=== PATIENT | male | born 2000 | race Caucasian/White ===

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

== ENCOUNTER 2023-03-11 01:34 | Emergency (ER) | payer MEDICAID, SELFPAY ==
[2023-03-11 01:36] VITALS: BP 138/92; PULSE 107; RESP 28; TEMP 36.4; O2SAT 100; BMI 15.7
--- NOTE | 2023-03-11 01:46 | EKG12_ITS ---
Test Reason : DYSRHYTHMIA Blood Pressure : / mmHG Vent. Rate : 099 BPM Atrial Rate : 099 BPM P-R Int : 110 ms QRS Dur : 094 ms QT Int : 352 ms P-R-T Axes : 065 091 050 degrees QTc Int : 451 ms Sinus rhythm with short MA Possible Left atrial enlargement Rightward axis ST elevation, consider early repolarization, pericarditis, or injury Abnormal ECG Confirmed by KIMBERLYN HERNANDEZ MD ([id number]), editor managing director SUSI RIVERS ([id number]) on 03/11/2023 1:56:17 PM Referred By: RON Confirmed By:KIMBERLYN HERNANDEZ MD
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
[2023-03-11] MEDS: Ondansetron 4 MG/2 ML Vial IV (02:08)
[2023-03-11] MEDS: Ketorolac 30 MG/ML Syringe IV (02:08)
[2023-03-11] MEDS: 0.9% Normal Saline (1000mL) 1,000 ML 1000 ML IV ×2 (02:08→02:53)
[2023-03-11 02:11] LABS: Absolute Neutrophil Count 14.4 X10^3/uL (2.0-7.7); Basophil% 0.6 % (0-1); Eosinophil# 0.04 X10^3/uL; Eosinophils% 0.2 % (0-5); Hemoglobin 16.3 g/dL (13.0-16.5); Lymphocyte % 3.7 % (19-41); Mean Corp Hgb Conc 33.3 g/dL (32-36); Mean Corpuscular Hgb 31.3 pg (27.0-32.0); Mean Platelet Vol. 10.2 fl (6.2-12.0); Monocyte# 0.84 X10^3/uL; Monocyte% 5.2 % (0-10); NRBC Flagged by Analyzer 0 % (0-5); Neutrophil # 14.39 X10^3/uL (2.7-7.7); POSITIVE DIFFERENTIAL YES; Platelet Count 267 K/mm3 (150-450); RBC Distribution Width CV 11.9 % (11.6-14.6); Red Blood Count 5.21 M/mm3 (4.6-6.2)
[2023-03-11 02:25] LABS: Differential Indicated SCAN CRITERIA MET
[2023-03-11 02:26] LABS: AST(SGOT) 27 U/L (15-37); Alanine Aminotransfer ALT/SGPT 26 U/L (16-61); Albumin, Serum 5.4 g/dL (3.2-5.0); Alkaline Phosphatase 83 U/L (45-117); Anion Gap 14 (5-15); BUN 19 mg/dL (7-18); Bilirubin, Direct 0.29 mg/dL (0.00-0.30); Calcium,Total 9.8 mg/dL (8.5-10.1); Chloride 105 mmol/L (98-107); Creatinine, Serum 1.12 mg/dL (0.70-1.30); EST Glomerular Filtration Rate 88 mL/min (>60); Est Glom Filt Rate - Afr Amer 107 mL/min (>60); Estimated Creatinine Clearance 82.59 ml/min; Globulin 3.6 g/dL (2.2-4.2); Glucose 129 mg/dL (74-106); Lipase 26 U/L (13-75); Potassium 3.4 mmol/L (3.5-5.1); Sodium Level 137 mmol/L (136-145)
[2023-03-11 02:50] VITALS: BP 125/78; PULSE 91; RESP 18; O2SAT 94
[2023-03-11 04:00] VITALS: BP 118/69; PULSE 88; RESP 18; O2SAT 98
== END 2023-03-11 04:00 | disposition home or self-care (01) ==
PROVIDERS: Emergency Provider Emergency Medicine; Visit Provider Emergency Medicine
DX: R11.2 Nausea with vomiting, unspecified (principal); F17.290 Nicotine dependence, other tobacco product, uncomplicated
CPT/HCPCS: 80048; 80076; 83690; 85025; 93005; 96361; 96374; 96375; 99284; J7030; A4216; J2405

== ENCOUNTER 2023-06-28 19:58 | Emergency (ER) | payer MEDICAID, SELFPAY ==
[2023-06-28 19:59] VITALS: BP 143/81; PULSE 88; RESP 16; TEMP 35.9; O2SAT 100; BMI 17.0
--- NOTE | 2023-06-28 20:10 | EDS_ITS ---
HPI <Dr. Shekhar Mccann DO - Last Filed: 07/02/23 15:13> History of Present Illness Chief Complaint: Nausea/Vomiting Detail of Chief Complaint: Nausea and vomiting Informant: patient Narrative Narrative: Patient presents to the emergency department complaint nausea and vomiting that started around noon today. Patient states that anytime he tries to eat or drink he throws up. He has had chills and sweats. He denies diarrhea. Describes just some mild diffuse abdominal discomfort. Denies sick contacts. Patient does smoke marijuana daily and also vapes. Denies cough or sore throat. PFSH <Dr. Shekhar Mccann DO - Last Filed: 07/02/23 15:13> PFSH Medical History no medical history Home Medications ondansetron 4 mg disintegrating tablet 4 mg PO Q8H PRN PRN Nausea #10 tabs 06/28/23 [Rx Last Taken Unknown] Allergy/AdvReac Type Severity Reaction Status Date / Time No Known Allergies Allergy Verified 11/28/20 11:32 Social History Smoking Status: Current every day smoker tobacco type: e-cigarettes ROS <Dr. Shekhar Mccann, DO - Last Filed: 07/02/23 15:13> ROS ED Review of Systems ROS Unobtainable: other Constitutional Constitutional ED: Reports systems reviewed and no addt'l complaints, except as documented, chills, fever(s), subjective and sweats; Denies body ache(s) or change in weight Eyes Eyes: Denies acute decrease in peripheral vision, change in vision, double vision or loss of vision ENT ENT ED: Reports none; Denies ear pain, lip swelling, loss taste/smell, neck pain, otalgia or sore throat Cardiovascular Cardiovascular: Reports none; Denies abdominal pain, chest pain with activity, leg edema, lightheadedness, palpitations, rapid heart rate or syncope Respiratory/Chest Respiratory/Chest: Reports none; Denies change in mental status, dry cough, dyspnea, hemoptysis, shortness of breath at rest or shortness of breath with exertion Gastrointestinal Gastrointestinal: Reports none, nausea and vomiting; Denies abdominal pain, change in stool character, diarrhea, hematemesis, hematochezia, melena or rectal bleeding Genitourinary Genitourinary ED: Reports none; Denies abdominal discomfort, anuria, dysuria, genital pain or polyuria Musculoskeletal Musculoskeletal: Reports none; Denies arthralgias, back pain, difficulty walking, extremity pain, muscle weakness or myalgias Integumentary Reports none; Denies abscess or rash Neurologic Neurologic: Reports none; Denies abnormal gait, confusion, focal weakness, frequent falls, headache(s), loss of vision, numbness, paresthesias, radicular pain, vertigo or weakness Psychiatric Psychiatric: Reports systems reviewed and no addt'l complaints, except as documented and none; Denies behavioral changes, confusion, difficulty concentrating, hallucinations, suicidal ideation, tactile hallucinations or visual hallucinations Endocrine Endocrinology: Denies none, cold intolerance, excessive sweating, fatigue or heat intolerance Hematologic/Lymphatic Hematologic/Lymphatic: Reports none; Denies anemia, easy bleeding or easy bruising Allergic/Immunologic Allergic/Immunologic ED: Denies as per HPI, none, lip swelling, mouth swelling, throat swelling, tongue swelling or hives EXAM <Dr. Shekhar Mccann, DO - Last Filed: 07/02/23 15:13> Physical Exam Const Vital Signs: 06/28/23 19:59 Temperature 96.6 F L Temperature Source Temporal Pulse Rate 88 Respiratory Rate 16 Blood Pressure 143/81 H Blood Pressure Mean 101 Pulse Ox 100 Oxygen Delivery Method Room Air Positive well nourished and well developed General Appearance ED: well developed and NAD HEENT Reports TM's clear and moist mucous membranes normocephalic and atraumatic; Negative for trauma or tenderness Tympanic Membrane ED: Yes TM's clear Eyes PERRL and EOMs intact bilaterally General Eye ED: Negative for pale conjunctiva or scleral icterus Neck no lymphadenopathy, supple and no JVD General: Negative for tenderness Chest Wall inspection of chest normal and palpation of chest normal Chest: Negative for tenderness Resp normal respiratory effort and clear to auscultation bilaterally Effort and Inspection: Negative for respiratory distress or pain with movement Auscultation: Negative for rhonchi, wheezes or diminished lung sounds Cardio regular rate, regular rhythm, S1 normal heart sound, S2 normal heart sound and no murmurs Peripheral Pulses: pulses 2+ throughout GI normal to inspection, nondistended, normoactive bowel sounds, soft to palpation, non-distended and no masses GI Narrative: Mild diffuse tenderness. There is no rebound, rigidity, or peritoneal signs. No mass palpated. No significant pain over McBurney's. Back/Spine no CVA tenderness and no thoracic nor lumbar tenderness Extremity normal to inspection General Extremety ED: Negative for edema General Extremity: Negative for edema Neuro oriented x3, CN's II-XII intact bilaterally, no sensory deficits noted and gait normal Sensorium / Orientation: awake, alert, oriented to person, oriented to place and oriented to time Motor Exam: strength 5/5 throughout and strength abnormal Psych mental status grossly normal Skin no rashes or lesions noted and no wounds <Dr. Maye Jaime MD - Last Filed: 06/28/23 23:36> Physical Exam Const Vital Signs: 06/28/23 19:59 Temperature 96.6 F L Temperature Source Temporal Pulse Rate 88 Respiratory Rate 16 Blood Pressure 143/81 H Blood Pressure Mean 101 Pulse Ox 100 Oxygen Delivery Method Room Air MDM <Dr. Shekhar Mccann DO - Last Filed: 07/02/23 15:13> [facility] MDM Narrative Medical decision making narrative: Patient presents with abdominal pain and no more periumbilical. Has had vomiting. In the differential would be viral etiology versus hyperemesis related to cannabis versus appendicitis or other acute intra-abdominal process. CBC with differential obtained showed a white count 12.8 with hemoglobin 15.7 and platelet count of 208. Chemistries unremarkable. CT scan of the abdomen pelvis ordered and results pending. Care of patient turned over to evening physician awaiting CT results and final disposition. Lab Data Attestation: I reviewed the patient's lab results. Labs: Laboratory Results - last 24 hr 06/28/23 20:21 WBC 12.8 H RBC 5.10 Hgb 15.7 Hct 48.6 MCV 95.3 H MCH 30.8 MCHC 32.3 RDW Std Deviation 41.9 RDW Coeff of Sylvia 11.9 Plt Count 208 MPV 10.8 Immature Gran % (Auto) 0.500 Neut % (Auto) 88.2 H Lymph % (Auto) 5.5 L [place] % (Auto) 3.7 Eos % (Auto) 1.6 Baso % (Auto) 0.5 Absolute Neuts (auto) 11.3 H Absolute Lymphs (auto) 0.71 L Nucleated RBC % 0 Sodium 138 Potassium 4.1 Chloride 109 H Carbon Dioxide 27.0 Anion Gap 2 L BUN 14 Creatinine 0.73 Estim Creat Clear Calc 137.63 Est GFR (MDRD) Af Amer 175 Est GFR (MDRD) Non-Af 144 BUN/Creatinine Ratio 19.2 Glucose 88 Calcium 8.9 Radiography Diagnostic Testing: Clinical Impression(s) from Imaging Studies Abdomen/Pelvis CT 06/28/23 20:53 IMPRESSION: undefined <Dr. Maye Jaime MD - Last Filed: 06/28/23 23:36> [facility] Lab Data Labs: Laboratory Results - last 24 hr 06/28/23 20:21 WBC 12.8 H RBC 5.10 Hgb 15.7 Hct 48.6 MCV 95.3 H MCH 30.8 MCHC 32.3 RDW Std Deviation 41.9 RDW Coeff of Sylvia 11.9 Plt Count 208 MPV 10.8 Immature Gran % (Auto) 0.500 Neut % (Auto) 88.2 H Lymph % (Auto) 5.5 L [place] % (Auto) 3.7 Eos % (Auto) 1.6 Baso % (Auto) 0.5 Absolute Neuts (auto) 11.3 H Absolute Lymphs (auto) 0.71 L Nucleated RBC % 0 Sodium 138 Potassium 4.1 Chloride 109 H Carbon Dioxide 27.0 Anion Gap 2 L BUN 14 Creatinine 0.73 Estim Creat Clear Calc 137.63 Est GFR (MDRD) Af Amer 175 Est GFR (MDRD) Non-Af 144 BUN/Creatinine Ratio 19.2 Glucose 88 Calcium 8.9 Radiography Diagnostic Testing: Clinical Impression(s) from Imaging Studies Abdomen/Pelvis CT 06/28/23 20:53 IMPRESSION: undefined Treatment and Re-Evaluation :: Patient was signed out to me to follow-up on CT scan. CT scan reveals no evidence of appendicitis. Test results discussed with patient and family at bedside. He will be given a prescription for Zofran and return instructions were provided. Discharge Plan Triage Chief Complaint: Nausea/Vomiting ED Provider: Shekhar Mccann Dx/Rx/DC Orders Clinical Impression: Vomiting Instructions: ED Vomiting (Adult) Prescriptions: New ondansetron 4 mg tablet,disintegrating 4 mg PO Q8H PRN PRN (Reason: Nausea) Qty: 10 0RF Primary Care Provider: Care Physician,No Primary Referrals: Evon Serra MD [Med Staff - Single Pointed Operator] - As Needed Care Physician,No Primary [Primary Care Provider] - Disposition Disposition: Home, Self Care Discharge Date/Time: 06/28/23 23:43
--- OUTSIDE RECORDS SUMMARY | 2023-06-28 20:16 | XMS RPT_ITS | CCD ---
Author Name Unknown Address [address] [place] [address] Organization [facility] Results Test Name Value Interpretation Reference Range Facil ity Encounters Encounter Date Encounter Type Care Provider Facility Start: 10-03-2018 End: 10-06-2018 [facility] Purpose Family History No Family History Records FoundNo Family History Records Found Advance Directives No Advanced Directives Records FoundNo Advanced Directives Records Found Additional Source Comments (unrecognized sect ion and content) No Status Records FoundNo Status Records Found INFORMATION SOURCE (unrecogn ized section and content) DATE CREATED AUTHOR AUTHOR'S JUSTINIZ ATGEORGE 07/29/2020 [place] FOR RECORDS PERTAINING TO PATIENTS WHO ARE OR HAVE BEEN ENROLLED IN A CHEMICAL DEPENDENCY/SUBSTANCEABUSE PROGRAM, SOME INFORMATION MAY BE OMITTED. This clinical summary was aggregated from multiple sources. Caution should be exercised in using it in the provision of clinical care. This summary normalizes information from multiple sources, and as a consequence, information in this document may materially change the coding, format and clinical context of patient data. In addition, data may be omitted in some cases. CLINICAL DECISIONS SHOULD BE BASED ON THE PRIMARY CLINICAL RECORDS. [facility] [employer] provides no warranty or guarantee of the accuracy or completeness of information in this document.
[2023-06-28] MEDS: Ondansetron 4 MG/2 ML Vial IV (20:19)
[2023-06-28] MEDS: 0.9% Normal Saline (1000mL) 1,000 ML 1000 ML IV (20:19)
[2023-06-28 20:28] LABS: Absolute Lymphocyte Count 0.71 X10^3/uL (0.83-4.51); Absolute Neutrophil Count 11.3 X10^3/uL (2.0-7.7); Basophil# 0.06 X10^3/uL; Basophil% 0.5 % (0-1); Eosinophils% 1.6 % (0-5); Hematocrit 48.6 % (40-54); Hemoglobin 15.7 g/dL (13.0-16.5); Lymphocyte # 0.71 X10^3/ul (0.83-4.51); Lymphocyte % 5.5 % (19-41); Mean Corp Hgb Conc 32.3 g/dL (32-36); Mean Corpuscular Hgb 30.8 pg (27.0-32.0); Mean Corpuscular Volume 95.3 fL (80-94); Mean Platelet Vol. 10.8 fl (6.2-12.0); Monocyte# 0.47 X10^3/uL; Monocyte% 3.7 % (0-10); NRBC Flagged by Analyzer 0 % (0-5); Neutrophil % 88.2 % (47-70); Platelet Count 208 K/mm3 (150-450); RBC Distribution Width CV 11.9 % (11.6-14.6); RBC Distribution Width SD 41.9 fl (35.1-43.9); White Blood Count 12.8 K/mm3 (4.4-11.0)
[2023-06-28 20:42] LABS: Anion Gap 2 (5-15); BUN 14 mg/dL (7-18); BUN/Creat Ratio 19.2 RATIO (10-20); Calcium,Total 8.9 mg/dL (8.5-10.1); Chloride 109 mmol/L (98-107); Creatinine, Serum 0.73 mg/dL (0.70-1.30); EST Glomerular Filtration Rate 144 mL/min (>60); Est Glom Filt Rate - Afr Amer 175 mL/min (>60); Estimated Creatinine Clearance 137.63 ml/min; Glucose 88 mg/dL (74-106); Potassium 4.1 mmol/L (3.5-5.1); Sodium Level 138 mmol/L (136-145)
--- NOTE | 2023-06-28 20:53 | CT_ITS ---
EXAM: CT abdomen and pelvis with contrast. HISTORY: abdominal pain, vomiting TECHNIQUE: CT Abdomen And Pelvis W/ Contrast Injection. A radiation dose optimization technique was used for this scan. COMPARISON: None. LIMITATIONS: Motion artifact. LOWER CHEST: Normal. LIVER: Normal. GALLBLADDER: Normal. BILE DUCTS: Normal. PANCREAS: Normal. SPLEEN: Normal. ADRENAL GLANDS: Normal. KIDNEYS/URETERS/BLADDER: Normal. AORTA: Normal caliber. BOWEL/MESENTERY: No evidence of colitis. No small bowel obstruction. APPENDIX: Normal. PERITONEUM: Trace free pelvic fluid. REPRODUCTIVE ORGANS: Normal. BONES/SOFT TISSUES: No acute fracture. OTHER: None. CONCLUSION: No evidence of appendicitis. Electronically Signed: Jonathan Lim MD at 23:23 EST , CT/Abdomen/Pelvis WITH Contrast IMPRESSION: undefined
[2023-06-28 23:42] VITALS: BP 127/74; PULSE 74; RESP 16; O2SAT 99
== END 2023-06-28 23:43 | disposition home or self-care (01) ==
PROVIDERS: Emergency Provider Emergency Medicine; Visit Provider Emergency Medicine
DX: R11.2 Nausea with vomiting, unspecified (principal); F17.290 Nicotine dependence, other tobacco product, uncomplicated; R50.9 Fever, unspecified
CPT/HCPCS: 74177; 80048; 85025; 87631; 96361; 96374; 99283; J7030; Q9967; A4216; J2405

== ENCOUNTER 2025-02-04 14:21 | Emergency (ER) | payer SELFPAY ==
[2025-02-04 14:22] VITALS: BP 135/79; PULSE 138; RESP 17; TEMP 36.8; O2SAT 100; BMI 17.1
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
--- NOTE | 2025-02-04 14:23 | EKG12_ITS ---
Test Reason : TRAUMA Blood Pressure : */* mmHG Vent. Rate : 110 BPM Atrial Rate : 110 BPM P-R Int : 116 ms QRS Dur : 96 ms QT Int : 326 ms P-R-T Axes : 76 93 66 degrees QTcB Int : 441 ms Sinus tachycardia Right atrial enlargement Rightward axis Pulmonary disease pattern Incomplete right bundle branch block Junctional ST depression, probably normal Abnormal ECG Confirmed by MARY UGARTE, KIMBERLYN ([id number]), design editor SUSI RIVERS ([id number]) on 02/07/2025 9:17:09 AM Referred By: Confirmed By: KIMBERLYN HERNANDEZ MD
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
[2025-02-04 14:29] VITALS: O2SAT 100
[2025-02-04] MEDS: 0.9% Normal Saline (1000mL) 1,000 ML 999 ML IV (14:42)
[2025-02-04 15:03] LABS: Hematocrit 46.6 % (40-54); Hemoglobin 15.5 g/dL (13.0-16.5); Immature Granulocytes Count 0.020 X10^3/uL (0.0-0.0); Mean Corp Hgb Conc 33.3 g/dL (32-36); Mean Corpuscular Volume 93.8 fL (80-94); Mean Platelet Vol. 10.9 fl (6.2-12.0); NRBC Flagged by Analyzer 0 % (0-5); Platelet Count 366 K/mm3 (150-450); RBC Distribution Width CV 12.3 % (11.6-14.6); RBC Distribution Width SD 42.8 fl (35.1-43.9); Red Blood Count 4.97 M/mm3 (4.6-6.2); White Blood Count 12.7 K/mm3 (4.4-11.0)
--- NOTE | 2025-02-04 15:05 | RAD_ITS ---
PROCEDURE: KNEE 1 OR 2 VIEWS 02/04/2025 REASON FOR EXAM: INJURY/PAIN TECHNIQUE: KNEE 1 OR 2 VIEWS Laterality: Left knee COMPARISON: None FINDINGS: Bones: No fracture. No suspicious bone lesion. Joints: Normal alignment. Mild degenerative changes. Effusion: No effusion. Soft tissues: Soft tissues are unremarkable. Other: RAD/Knee 1 or 2 Views IMPRESSION: NO EFFUSION ACUTE FRACTURE OR DISLOCATION. Reading Location: [place] [id number]
--- NOTE | 2025-02-04 15:05 | RAD_ITS ---
PROCEDURE: ELBOW MIN 3 VIEWS 02/04/2025 REASON FOR EXAM: INJURY/PAIN TECHNIQUE: ELBOW MIN 3 VIEWS Laterality: Left elbow COMPARISON: None FINDINGS: Bones: No fracture. Joints: Normal alignment. Soft tissues: Soft tissues are unremarkable. Other: RAD/Elbow min 3 Views IMPRESSION: No acute abnormality is seen. Reading Location: [place] [id number]
[2025-02-04 15:23] LABS: AST(SGOT) 32 U/L (<=37); Alanine Aminotransfer ALT/SGPT 18 U/L (<=46); Albumin, Serum 5.3 g/dL (3.5-5.0); Alkaline Phosphatase 75 U/L (40-129); Anion Gap 22 (5-15); BUN 11 mg/dL (4-19); BUN/Creat Ratio 10.4 RATIO (10-20); Bilirubin, Direct 0.30 mg/dL (0.00-0.30); Calcium,Total 10.4 mg/dL (7.6-11.0); Carbon Dioxide 17.4 mmol/L (21.0-32.0); Chloride 102 mmol/L (98-108); Estimated Creatinine Clearance 94.43 ml/min (50-250); Globulin 3.5 g/dL (2.2-4.2); Glucose 115 mg/dL (70-99); Potassium 3.5 mmol/L (3.3-5.1)
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
[2025-02-04 15:53] LABS: Troponin T High Sensitivity < 6 ng/L (<=22)
[2025-02-04 16:01] LABS: Mucous, Urine 0 SEEN /hpf (<or=2+); Red Blood Cells-Urine 0 SEEN /hpf (0-5); Squamous Epithelial Cells - UA 0 SEEN /hpf (0-5)
[2025-02-04 16:06] VITALS: BP 120/71; PULSE 104; RESP 16; O2SAT 100
[2025-02-04 16:19] LABS: Color, Urine Yellow (Yellow); Glucose, Dipstick Normal (Normal); Ketone-Dipstick 5 mg/dl (Negative); Leukocyte Esterase-Dipstick Negative /ul (Negative); Nitrite-Dipstick Negative (Negative); Occult Blood-Urine Negative /ul (Negative); Protein-Dipstick 30 mg/dl (Negative); Specific Gravity, Urine 1.015 (1.002-1.030); Urine Bilirubin Dipstick Negative (Negative)
[2025-02-04 16:27] LABS: Troponin T High Sens 2 HR 8 ng/L (<=22)
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
[2025-02-04 16:46] VITALS: BP 114/76; PULSE 106; RESP 15; TEMP 36.9; O2SAT 100
== END 2025-02-04 17:32 | disposition short-term general hospital (02) ==
PROVIDERS: Emergency Provider Emergency Medicine; Visit Provider Emergency Medicine
DX: S12.691A Other nondisplaced fracture of seventh cervical vertebra, initial encounter for closed fracture (principal); S06.0X9A Concussion with loss of consciousness of unspecified duration, initial encounter; S26.11XA Contusion of heart without hemopericardium, initial encounter; S30.810A Abrasion of lower back and pelvis, initial encounter; S40.812A Abrasion of left upper arm, initial encounter; S80.812A Abrasion, left lower leg, initial encounter; V28.49XA Other motorcycle driver injured in noncollision transport accident in traffic accident, initial encounter; F17.290 Nicotine dependence, other tobacco product, uncomplicated
CPT/HCPCS: 70450; 71250; 72125; 73080; 73560; 74176; 80048; 80076; 81001; 84484; 85025; 93005; 96361; 96374; 96375; 96376; 99284; A4216; J2405

== ENCOUNTER 2025-03-18 02:21 | Emergency (ER) | payer SELFPAY ==
[2025-03-18] VITALS (7 sets, daily range): BP systolic 102–144; BP diastolic 45–88; PULSE 86–131; RESP 16–22; TEMP 36.6; O2SAT 99–100; BMI 17.6
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
--- NOTE | 2025-03-18 02:42 | CT_ITS ---
PROCEDURE: CTA CHST, ABD, PEL W AND/OR WO 03/18/2025 REASON FOR EXAM: CHEST PAIN WITH HEMATEMESIS TECHNIQUE: Procedure Code: CTCTA.CHAP.2 Modality: CT Procedure: CTA CHST, ABD, PEL W AND/OR WO Coronal and Sagittal reconstruction series were provided. One or more dose reduction techniques were used (e.g., Automated exposure control, adjustment of the mA and/or kV according to patient size, use of iterative reconstruction technique. CONTRAST: OMNIPAQUE 350 VOLUME: 100 mL RADIATION DOSE SUMMARY: CTDlvol: 6.31 mGy DLP: 485 mGycm COMPARISON: CT scan on 02/04/2025. FINDINGS: Normal enhancement of the main pulmonary artery and right and left pulmonary arteries. Normal enhancement of the bilateral peripheral pulmonary arteries. There is no demonstrated pulmonary embolism. Normal thoracic aorta and visualized great vessels. There is no demonstrated aortic dissection. Normal heart and pericardium. Normal mediastinum. Normal hilar regions. Normal visualized trachea and bronchi. The lungs are well expanded. Normal pulmonary parenchyma. Normal pleura. Normal chest wall structures. Normal osseous structures. Normal liver. Normal gallbladder and extrahepatic biliary system. Normal spleen. Normal pancreas. Normal bilateral adrenal glands. Normal size of the right kidney. There is no right renal mass. There are no right renal calculi. There is no right hydronephrosis. Normal visualized right ureter. Normal size of the left kidney. There is no left renal mass. There are no left renal calculi. There is no left hydronephrosis. Normal visualized left ureter. Normal visualized stomach. Normal small intestine. Normal colon. The appendix is visualized and appears normal. There is no demonstrated peritoneal fluid. Normal abdominal aorta. Normal inferior vena cava. Normal retroperitoneum. Normal urinary bladder. There is no pelvic mass lesion or lymphadenopathy. There is no pelvic fluid. Normal abdominal wall. Normal osseous structures. CT/CTA Chst, Abd, Pel W and/or WO IMPRESSION: No CT evidence of pulmonary embolus or aortic dissection. No CT evidence of an acute abnormality. Reading Location: [place] [id number]
[2025-03-18] MEDS: 0.9% Normal Saline (1000mL) 1,000 ML 999 ML IV ×2 (02:45→04:06)
[2025-03-18] MEDS: DiphenhydrAMINE 50 MG/ML Syringe 25 MG IV (02:52)
[2025-03-18 03:10] LABS: Hematocrit 47.7 % (40-54); Hemoglobin 16.0 g/dL (13.0-16.5); Immature Granulocytes Count 0.120 X10^3/uL (0.0-0.0); Mean Corp Hgb Conc 33.5 g/dL (32-36); Mean Corpuscular Volume 96.2 fL (80-94); Mean Platelet Vol. 11.0 fl (6.2-12.0); NRBC Flagged by Analyzer 0 % (0-5); Platelet Count 300 K/mm3 (150-450); RBC Distribution Width CV 12.1 % (11.6-14.6); RBC Distribution Width SD 43.2 fl (35.1-43.9); Red Blood Count 4.96 M/mm3 (4.6-6.2); White Blood Count 16.4 K/mm3 (4.4-11.0)
[2025-03-18 03:20] LABS: Prothrombin Time (Protime)PT. 14.7 SECONDS (11.7-14.9)
[2025-03-18 03:21] LABS: Partial Thromboplast Time 23.5 Seconds (24.1-36.2)
[2025-03-18] MEDS: Pantoprazole Sodium 40 MG in 0.9% Normal Saline (100mL MB+) 100 ML 300 MG IV (03:22)
[2025-03-18 03:52] LABS: AST(SGOT) 30 U/L (<=37); Alanine Aminotransfer ALT/SGPT 17 U/L (<=46); Albumin, Serum 5.4 g/dL (3.5-5.0); Alkaline Phosphatase 74 U/L (40-129); Anion Gap 21 (5-15); BUN 10 mg/dL (4-19); BUN/Creat Ratio 11.7 RATIO (10-20); Bilirubin, Direct 0.20 mg/dL (0.00-0.30); Calcium,Total 9.5 mg/dL (7.6-11.0); Carbon Dioxide 18.5 mmol/L (21.0-32.0); Chloride 103 mmol/L (98-108); Estimated Creatinine Clearance 124.12 ml/min (50-250); Globulin 3.1 g/dL (2.2-4.2); Glucose 90 mg/dL (70-99); Lipase 25 U/L (13-75); Potassium 3.8 mmol/L (3.3-5.1)
--- NOTE | 2025-03-18 04:20 | PCA ---
when pt is discharged, can call Pay[facility] @ [phone] to pick pt up.
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
[2025-03-18 07:06] LABS: Reflex Lactate? Y
== END 2025-03-18 06:25 | disposition home or self-care (01) ==
PROVIDERS: Emergency Provider Emergency Medicine; Visit Provider Emergency Medicine
DX: K29.70 Gastritis, unspecified, without bleeding (principal); R07.9 Chest pain, unspecified; F17.290 Nicotine dependence, other tobacco product, uncomplicated
CPT/HCPCS: 71275; 74174; 80048; 80076; 83605; 83690; 85025; 85610; 85730; 96361; 96374; 96375; 99283; Q9967

== ENCOUNTER 2025-03-20 19:29 | Emergency (ER) | payer SELFPAY ==
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
[2025-03-20 19:29] VITALS: BP 149/104; PULSE 75; RESP 14; TEMP 36.8; O2SAT 98; BMI 17.2
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
[2025-03-20 19:58] VITALS: O2SAT 99
[2025-03-20 20:17] VITALS: BP 119/74; PULSE 87; RESP 16; TEMP 36.7; O2SAT 99
== END 2025-03-20 20:18 | disposition home or self-care (01) ==
LOC: ED 19:53
PROVIDERS: Emergency Provider Emergency Medicine; Visit Provider Emergency Medicine
DX: S70.211A Abrasion, right hip, initial encounter (principal); F12.90 Cannabis use, unspecified, uncomplicated; F17.290 Nicotine dependence, other tobacco product, uncomplicated; V28.49XA Other motorcycle driver injured in noncollision transport accident in traffic accident, initial encounter; S30.810A Abrasion of lower back and pelvis, initial encounter
CPT/HCPCS: 99282